=== PATIENT | male | born 1980 | race Two or more races ===

== ENCOUNTER 2022-05-30 18:44 | Emergency (ER) | payer MEDICAID ==
[~2022-05-30] VITALS: Ht 177.8 cm; Wt 155.0 kg
[2022-05-30 19:19] VITALS: BP 157/82
== END 2022-05-30 21:24 | disposition home or self-care (01) ==
LOC: ER 18:45
DX: S43.204A Unspecified dislocation of right sternoclavicular joint, initial encounter (principal); X58.XXXA Exposure to other specified factors, initial encounter; Y93.89 Activity, other specified; Y92.89 Other specified places as the place of occurrence of the external cause; Y99.8 Other external cause status
CPT/HCPCS: 73000; 99283